=== PATIENT | female | born 1950 | race Caucasian/White ===

== ENCOUNTER → 2017-04-23 | Outpatient (CLI) | payer MEDICARE | END | disposition home or self-care (01) | LOC: PCVCCLINIC 14:05 | DX: I44.7 Left bundle-branch block, unspecified (principal); I47.1 Supraventricular tachycardia; E78.5 Hyperlipidemia, unspecified; I10 Essential (primary) hypertension; G47.33 Obstructive sleep apnea (adult) (pediatric); C64.9 Malignant neoplasm of unspecified kidney, except renal pelvis; R94.31 Abnormal electrocardiogram [ECG] [EKG]; Z79.82 Long term (current) use of aspirin; Z79.899 Other long term (current) drug therapy | CPT/HCPCS: 80061; 93005; G0463 ==

== ENCOUNTER → 2017-05-03 | Outpatient (CLI) | payer MEDICARE | END | disposition home or self-care (01) | LOC: PCVCIMAG 08:33 | DX: I08.1 Rheumatic disorders of both mitral and tricuspid valves (principal); I10 Essential (primary) hypertension; G47.30 Sleep apnea, unspecified; I44.7 Left bundle-branch block, unspecified; I47.1 Supraventricular tachycardia | CPT/HCPCS: 93306 ==

== ENCOUNTER → 2017-05-07 | Outpatient (CLI) | payer MEDICARE ==
[~2017-05-07] MED LIST: AMINOPHYLLINE 250 MG/10 ML VIAL.; REGADENOSON 0.4 MG/5 ML DISP.SYRIN. IV
== END | disposition home or self-care (01) ==
LOC: PCVCIMAG 12:57
DX: I44.7 Left bundle-branch block, unspecified (principal); R06.09 Other forms of dyspnea; I47.1 Supraventricular tachycardia
CPT/HCPCS: 78452; 93017; A9500; J0280; J2785